=== PATIENT | female | born 1950 ===

== ENCOUNTER → 2020-01-09 | Outpatient (CLI) | payer MEDICARE, OTHER | LOC: LAB 10:23 → LAB SHORT 10:23 | DX: Z08 Encounter for follow-up examination after completed treatment for malignant neoplasm (principal); D48.5 Neoplasm of uncertain behavior of skin; D22.5 Melanocytic nevi of trunk; D22.72 Melanocytic nevi of left lower limb, including hip; T63.301A Toxic effect of unspecified spider venom, accidental (unintentional), initial encounter; L08.9 Local infection of the skin and subcutaneous tissue, unspecified; L82.0 Inflamed seborrheic keratosis; L53.8 Other specified erythematous conditions; L29.8 Other pruritus; L91.8 Other hypertrophic disorders of the skin; R20.8 Other disturbances of skin sensation | CPT/HCPCS: 87070; 87205 ==